=== PATIENT | female | born 1970 | race Caucasian/White ===

== ENCOUNTER 2016-11-24 16:27 | Emergency (ER) | payer OTHER ==
[~2016-11-24] VITALS: Ht 157.5 cm; Wt 65.9 kg
[2016-11-24] MEDS ORDERED: ZOFRAN ODT4 MG PO (18:14)
[2016-11-24 18:30] VITALS: BP 151/87
== END 2016-11-24 18:31 | disposition home or self-care (01) ==
LOC: EME 16:27
DX: J11.1 Influenza due to unidentified influenza virus with other respiratory manifestations (principal); R11.2 Nausea with vomiting, unspecified
CPT/HCPCS: 99281; 99284

== ENCOUNTER 2017-03-05 18:59 | Emergency (ER) | payer OTHER ==
[~2017-03-05] VITALS: Ht 157.5 cm; Wt 68.1 kg
[~2017-03-05 18:59] MED LIST: ZOFRAN ODT4 MG PO
[2017-03-05] MEDS ORDERED: NAPROXEN500 MG PO (20:22)
[2017-03-05 21:22] VITALS: BP 135/78
[2017-03-05] MEDS ORDERED: ARMOUR THYROID240 MG PO (21:22)
== END 2017-03-05 21:24 | disposition home or self-care (01) ==
LOC: EME 18:59
PROC: 0HQGXZZ Repair Left Hand Skin, External Approach (ICD-10-PCS; principal; 2017-03-05)
DX: S61.211A Laceration without foreign body of left index finger without damage to nail, initial encounter (principal); W26.0XXA Contact with knife, initial encounter; Y93.G1 Activity, food preparation and clean up
CPT/HCPCS: 99281; 99284; S0020

== ENCOUNTER 2017-09-20 07:11 | Day surgery (SDC) | payer BC ==
[~2017-09-20] VITALS: Ht 157.5 cm; Wt 68.0 kg
[~2017-09-20 07:11] MED LIST changes: +ARMOUR THYROID240 MG PO; +NAPROXEN500 MG PO; +SYNTHROID200 MCG PO
[2017-09-20 07:39] VITALS: BP 121/71
[2017-09-20 10:48] VITALS: BP 150/95
[2017-09-20 11:23] VITALS: BP 149/68
== END 2017-09-20 11:41 | disposition home or self-care (01) ==
LOC: SDC 07:11
PROC: 0UBC7ZX Excision of Cervix, Via Natural or Artificial Opening, Diagnostic (ICD-10-PCS; principal; 2017-09-20)
DX: D06.9 Carcinoma in situ of cervix, unspecified (principal); E03.9 Hypothyroidism, unspecified
CPT/HCPCS: 87641; 88305; 88307; J1100; J2250; J2405